=== PATIENT | male | born 1990 | race American Indian/Alaskan Native ===

== ENCOUNTER 2018-12-19 07:23 | Emergency (ER) | payer SELFPAY ==
[2018-12-19 07:38] VITALS: BP 135/94
--- NOTE | 2018-12-19 08:44 | Emergency Department Report ---
ED ENT HPI - General Chief complaint: Dental/Oral Stated complaint: RT EYE SWOLLEN/MOUTH PAIN Time Seen by Provider: 12/19/18 08:36 Source: patient Mode of arrival: Ambulatory Limitations: No Limitations - History of Present Illness MD complaint: tooth pain -: days(s) (5) Location: tooth # (30) Severity scale (0 -10): 4 Consistency: intermittent Context- Dental: history of dental caries - Related Data Allergies Allergy/AdvReac Type Severity Reaction Status Date / Time No Known Allergies Allergy Unverified 12/19/18 07:38 ED Dental HPI - General Chief complaint: Dental/Oral Stated complaint: RT EYE SWOLLEN/MOUTH PAIN Time Seen by Provider: 12/19/18 08:36 Source: patient Mode of arrival: Ambulatory Limitations: No Limitations - Related Data Allergies Allergy/AdvReac Type Severity Reaction Status Date / Time No Known Allergies Allergy Unverified 12/19/18 07:38 ED Review of Systems ROS: Stated complaint: RT EYE SWOLLEN/MOUTH PAIN Other details as noted in HPI Comment: All other systems reviewed and negative Constitutional: denies: chills, fever Respiratory: denies: cough Cardiovascular: denies: palpitations Gastrointestinal: denies: abdominal pain, nausea, vomiting ED Past Medical Hx - Past Medical History Previous Medical History?: No - Surgical History Past Surgical History?: No - Social History Smoking Status: Current Every Day Smoker Substance Use Type: None ED Physical Exam - General Limitations: No Limitations General appearance: alert, in no apparent distress - Head Head exam: Present: atraumatic, normocephalic, normal inspection - Eye Eye exam: Present: normal appearance - ENT ENT exam: Present: other (dental caries tooth # 30) - Neck Neck exam: Present: normal inspection, full ROM. Absent: tenderness, meningismus, lymphadenopathy, thyromegaly - Respiratory Respiratory exam: Present: normal lung sounds bilaterally - Cardiovascular Cardiovascular Exam: Present: regular rate, normal rhythm, normal heart sounds - Neurological Exam Neurological exam: Present: alert, oriented X3, CN II-XII intact, normal gait ED Course Vital Signs 12/19/18 07:35 Temperature 97.9 F Pulse Rate 66 Respiratory 20 Rate Blood Pressure 135/94 O2 Sat by Pulse 99 Oximetry Critical care attestation.: If time is entered above; I have spent that time in minutes in the direct care of this critically ill patient, excluding procedure time. ED Disposition Clinical Impression: Dental caries, Franco Disposition: DC-01 TO HOME OR SELFCARE Is pt being admited?: No Condition: Stable Instructions: Franco (ED), Dental Esther (ED) Referrals: NAVNEET WILKS MD [Primary Care Provider] - 3-5 Days
== END 2018-12-19 08:51 | disposition home or self-care (01) ==
LOC: ED 07:23
DX: K02.9 Dental caries, unspecified (principal); H00.013 Hordeolum externum right eye, unspecified eyelid
CPT/HCPCS: 99282